=== PATIENT | female | born 1975 | race Caucasian/White ===

== ENCOUNTER 2017-02-15 19:51 | Emergency (ER) | payer BC ==
[2017-02-15 20:02] VITALS: BP 121/60
[2017-02-15] MEDS ORDERED: Tetan/Diph/Pertus SYR(Tdap)* 0.5 ML SYR(BOOSTRIX) use SYR IM ONE (20:04)
--- NOTE | 2017-02-15 20:04 | UC ---
Laceration HPI - HPI Summary HPI Summary: Pt presents with laceration to left index finger. She was cutting a bagel about an hour ago, the knife slipped and sliced her left lateral index finger. Unsure when her last tetanus was. - History Of Current Complaint Chief Complaint: UCLaceration Stated Complaint: FINGER LAC Time Seen by Provider: 02/15/17 20:00 Hx Obtained From: Patient Hx Last Menstrual Period: Laceration Location: Finger Mechanism Of Injury: Sharp Trauma Onset/Duration: Sudden Onset Severity: Mild Pain Intensity: 1 Pain Scale Used: 0-10 Numeric - Allergies/Home Medications Allergies/Adverse Reactions: Allergies Allergy/AdvReac Type Severity Reaction Status Date / Time No Known Allergies Allergy Verified 02/15/17 20:02 Home Medications: Home Medications Control 02/15/17 [History] Vitman B 12 Injection 1,000 mcg 02/15/17 [History] PMH/Surg Hx/FS Hx/Imm Hx Previously Healthy: Yes - Surgical History Surgical History: Yes Surgery Procedure, Year, and Place: gall bladder 2009. left breast lumpectomy 1999 - Social History Occupation: Employed Full-time Lives: With Family Alcohol Use: Rare Substance Use Type: None Smoking Status (MU): Never Smoked Tobacco Review of Systems Constitutional: Negative Skin: Other - Laceration to left index finger Respiratory: Negative Cardiovascular: Negative Musculoskeletal: Negative All Other Systems Reviewed And Are Negative: Yes Physical Exam Triage Information Reviewed: Yes Appearance: Well-Appearing, No Pain Distress, Well-Nourished Vital Signs: Initial Vital Signs Temp 99.7 F 02/15/17 19:57 Pulse 77 02/15/17 19:57 Resp 18 02/15/17 19:57 BP 121/60 02/15/17 19:57 Pulse Ox 99 02/15/17 19:57 Vital Signs Reviewed: Yes Respiratory: Positive: Chest non-tender, Lungs clear, Normal breath sounds Cardiovascular: Positive: RRR, No Murmur, Pulses Normal, Brisk Capillary Refill - Left index finger Musculoskeletal: Positive: Strength Intact - Left index finger, ROM Intact - Left index finger, No Edema - Left index finger Neurological: Positive: Alert, Other: - Sensations intact Left index finger Psychological: Positive: Age Appropriate Behavior Skin: Positive: Other - 1.0cm linear superficial laceration to lateral left index finger. No tendon involvement. Bleeding was stopped with direct pressure. No foreign bodies appreciated. Laceration Repair - Laceration Repair 1 Description: Linear Laceration Size After Repair: Length (cm) - 1.0 Modified For Repair: No Type Injection: Local Anesthesia Used: 2.0% Lido Cleansing Completed Via Routine Prep: Yes Closure Material: Sutures - THREE 5-0 Closure Method: Single Layer Suture Of: Skin Suture Type: Nylon Laceration Course/Dx - Course/Dx Course Of Treatment: A time out was performed, witnessed, and signed. The area was irrigated with 50mL sterile saline. 3mL of 2% lidocaine without epi was administered and good anesthetization was achieved. An Iodine swab was used to cleanse the area. In the usual sterile fashion, THREE 5-0 nylon sutures were placed. The wound was bandaged with telfa and tube gauze. Pt tolerated procedure well. Her tetanus was updated today. - Differential Dx - Laceration/Wound Differental Diagnoses: Laceration Provider Diagnoses: 1.0cm laceration to left index finger Discharge - Discharge Plan Condition: Stable Disposition: HOME Patient Education Materials: Care For Your Stitches (ED) Referrals: Rosahn De Leon MD [Primary Care Provider] - Additional Instructions: If you develop a fever, shortness of breath, chest pain, new or worsening symptoms - please call your PCP or go to the ED. 1) Please keep the area bandaged, clean, dry, and intact for the next 24- 48hours. 2) If you develop a fever, colored or thick discharge, increased pain or swelling - please call your PCP or go to the ED. 3) Please return in 10-14 days to have your THREE sutures removed.
[2017-02-15] MEDS ORDERED: Lidocaine 2% PF * 5 ML VIAL INJ ONE (20:05)
== END 2017-02-15 20:50 | disposition home or self-care (01) ==
LOC: UCEAST 19:51
DX: S61.211A Laceration without foreign body of left index finger without damage to nail, initial encounter (principal); Z23 Encounter for immunization; W26.0XXA Contact with knife, initial encounter; Y92.9 Unspecified place or not applicable
CPT/HCPCS: 12001; 90715; 99211; G0463